=== PATIENT | female | born 1935 | race Caucasian/White ===

== ENCOUNTER → 2023-04-22 08:14 | Outpatient (REF) | payer MEDICARE, OTHER, SELFPAY ==
[2023-04-22 09:26] LABS: Blood Urea Nitrogen 21 mg/dl (7-17); Calcium 9.3 mg/dl (8.4-10.2); Carbon Dioxide 29 mmol/L (22-30); Chloride 97 mmol/L (98-107); Glucose 242 mg/dl (70-99); Sodium 134 mmol/L (135-145); eGFR > 60.00
[2023-04-23 20:44] LABS: Fructosamine 440 umol/L (205-285)
== END ==
LOC: REG 08:14
PROVIDERS: ATTENDING PHYSICIAN Internal Medicine Geriatric Medicine
DX: E11.9 Type 2 diabetes mellitus without complications (principal); I10 Essential (primary) hypertension; E78.5 Hyperlipidemia, unspecified; I25.10 Atherosclerotic heart disease of native coronary artery without angina pectoris; I35.0 Nonrheumatic aortic (valve) stenosis; Z95.2 Presence of prosthetic heart valve; G47.33 Obstructive sleep apnea (adult) (pediatric); G60.9 Hereditary and idiopathic neuropathy, unspecified; J30.2 Other seasonal allergic rhinitis; E55.9 Vitamin D deficiency, unspecified; Z13.31 Encounter for screening for depression; Z12.31 Encounter for screening mammogram for malignant neoplasm of breast
CPT/HCPCS: 36415; 80048; 82985

== ENCOUNTER → 2023-05-26 07:49 | Outpatient (REF) | payer MEDICARE, OTHER, SELFPAY ==
[2023-05-26 08:34] LABS: Urine Albumin Negative (Neg - Trace); Urine Bilirubin Negative (Negative); Urine Character Clear (Clear); Urine Color Yellow; Urine Glucose Trace (Negative); Urine Ketone Negative (Negative); Urine Leukocyte 1+ (Negative); Urine Nitrite Negative (Negative); Urine Occult Blood 3+ (Negative); Urine Specific Gravity 1.015 (<1.030); Urine Urobilinogen Negative (Neg - 1+)
[2023-05-26 08:41] LABS: Urine Bacteria Few (Negative); Urine Red Blood Cell 0-2 /HPF (0-2); Urine White Cell 0-2 /HPF (0-5)
[2023-05-26 08:51] LABS: % Basophils 0.7 % (0-2); % Eosinophils 3.4 % (0-6); % Immature Granulocytes 0.3 % (0-0.5); % Lymphocytes 24.6 % (20.5-51.1); % Monocytes 8.8 % (1.7-9.3); % Neutrophils 62.2 % (42.2-75.2); Absolute Eosinophils 0.2 10^3/uL (0-0.7); Absolute Lymphocytes 1.5 10^3/uL (1.2-3.4); Absolute Monocytes 0.5 10^3/uL (0.1-0.6); Absolute Neutrophils 3.7 10^3/uL (1.4-6.5); Hematocrit 41.7 % (37.0-47.0); Hemoglobin 14.2 g/dL (12.0-16.0); Mean Corp Hgb Conc. 34.1 g/dL (33.0-37.0); Mean Corpuscular Hgb 32.8 pg (27.0-31.0); Mean Corpuscular Volume 96.3 fL (81.0-99.0); Mean Platelet Volume 9.7 fL (7.4-10.4); Nucleated Red Blood Cells % 0 %; Platelet Count 190 10^3/uL (130-400); Red Blood Cell Count 4.33 10^6/uL (4.20-5.40); Red Cell Dist. Width 12.2 % (11.5-14.5); White Blood Cell Count 5.9 10^3/uL (4.8-10.8)
[2023-05-26 09:12] LABS: ALT (SGPT) 24 U/L (0-35); AST (SGOT) 26 U/L (14-36); Albumin 4.1 g/dl (3.5-5.0); Alkaline Phosphatase 85 U/L (38-126); Blood Urea Nitrogen 22 mg/dl (7-17); Calcium 9.9 mg/dl (8.4-10.2); Carbon Dioxide 31 mmol/L (22-30); Chloride 98 mmol/L (98-107); Glucose 219 mg/dl (70-99); HDL Cholesterol 54 mg/dl; LDL Cholesterol, Calculated 63 mg/dl; Potassium 4.2 mmol/L (3.5-5.1); Sodium 136 mmol/L (135-145); Total Bilirubin 0.9 mg/dl (0.2-1.3); Total Cholesterol 149 mg/dl (50-199); Total Protein 6.7 g/dl (6.3-8.2); Triglyceride 161 mg/dl (10-149); Very Low Density Lipoprotein 32 mg/dl (0-30); eGFR > 60.00
[2023-05-26 09:17] LABS: Vitamin D, 25-OH*** 43.8 ng/mL (30-80)
== END ==
LOC: REG 07:49
PROVIDERS: ATTENDING PHYSICIAN Internal Medicine Geriatric Medicine
DX: I10 Essential (primary) hypertension (principal); E11.9 Type 2 diabetes mellitus without complications; E55.9 Vitamin D deficiency, unspecified
CPT/HCPCS: 36415; 80053; 80061; 81003; 81015; 82306; 83036; 85025

== ENCOUNTER → 2023-09-06 09:03 | Outpatient (REF) | payer MEDICARE, OTHER, SELFPAY ==
[2023-09-06 10:36] LABS: % Basophils 0.8 % (0-2); % Eosinophils 3.3 % (0-6); % Immature Granulocytes 0.3 % (0-0.5); % Lymphocytes 19.7 % (20.5-51.1); % Monocytes 8.6 % (1.7-9.3); % Neutrophils 67.3 % (42.2-75.2); Absolute Basophils 0.1 10^3/uL (0-0.2); Absolute Eosinophils 0.2 10^3/uL (0-0.7); Absolute Lymphocytes 1.3 10^3/uL (1.2-3.4); Absolute Monocytes 0.6 10^3/uL (0.1-0.6); Absolute Neutrophils 4.3 10^3/uL (1.4-6.5); Hematocrit 39.5 % (37.0-47.0); Hemoglobin 13.4 g/dL (12.0-16.0); Mean Corp Hgb Conc. 33.9 g/dL (33.0-37.0); Mean Corpuscular Hgb 33.2 pg (27.0-31.0); Mean Corpuscular Volume 97.8 fL (81.0-99.0); Mean Platelet Volume 10.4 fL (7.4-10.4); Nucleated Red Blood Cells % 0 %; Platelet Count 152 10^3/uL (130-400); Red Blood Cell Count 4.04 10^6/uL (4.20-5.40); White Blood Cell Count 6.4 10^3/uL (4.8-10.8)
[2023-09-06 11:07] LABS: ALT (SGPT) 19 U/L (0-35); AST (SGOT) 25 U/L (14-36); Albumin 3.9 g/dl (3.5-5.0); Alkaline Phosphatase 83 U/L (38-126); Blood Urea Nitrogen 18 mg/dl (7-17); Calcium 9.6 mg/dl (8.4-10.2); Carbon Dioxide 30 mmol/L (22-30); Chloride 99 mmol/L (98-107); Glucose 210 mg/dl (70-99); Potassium 4.4 mmol/L (3.5-5.1); Sodium 136 mmol/L (135-145); Total Bilirubin 0.8 mg/dl (0.2-1.3); Total Protein 6.7 g/dl (6.3-8.2); eGFR > 60.00
[2023-09-07 22:36] LABS: Fructosamine 408 umol/L (205-285)
[2023-09-08 00:34] LABS: C-Peptide 3.3 ng/mL (0.5-3.3)
== END ==
LOC: REG 09:03
PROVIDERS: ATTENDING PHYSICIAN Internal Medicine Geriatric Medicine
DX: E11.9 Type 2 diabetes mellitus without complications (principal); I10 Essential (primary) hypertension; E78.5 Hyperlipidemia, unspecified; I25.10 Atherosclerotic heart disease of native coronary artery without angina pectoris; I35.0 Nonrheumatic aortic (valve) stenosis; Z95.2 Presence of prosthetic heart valve; G47.33 Obstructive sleep apnea (adult) (pediatric); G60.9 Hereditary and idiopathic neuropathy, unspecified; J30.2 Other seasonal allergic rhinitis; E55.9 Vitamin D deficiency, unspecified; Z13.31 Encounter for screening for depression
CPT/HCPCS: 36415; 80053; 82985; 84681; 85025

== ENCOUNTER → 2023-10-30 07:50 | Outpatient (REF) | payer MEDICARE, OTHER, SELFPAY ==
[2023-10-30 09:07] LABS: ALT (SGPT) 27 U/L (0-35); AST (SGOT) 28 U/L (14-36); Albumin 4.2 g/dl (3.5-5.0); Alkaline Phosphatase 117 U/L (38-126); Blood Urea Nitrogen 19 mg/dl (7-17); Calcium 9.6 mg/dl (8.4-10.2); Carbon Dioxide 31 mmol/L (22-30); Chloride 98 mmol/L (98-107); Glucose 276 mg/dl (70-99); Sodium 134 mmol/L (135-145); Total Bilirubin 0.8 mg/dl (0.2-1.3); Total Protein 6.8 g/dl (6.3-8.2); eGFR 54.53
[2023-10-30 09:14] LABS: Potassium 4.9 mmol/L (3.5-5.1)
[2023-11-01 09:50] LABS: Fructosamine 476 umol/L (205-285)
== END ==
LOC: REG 07:50
PROVIDERS: ATTENDING PHYSICIAN Internal Medicine Geriatric Medicine
DX: E11.9 Type 2 diabetes mellitus without complications (principal); E78.5 Hyperlipidemia, unspecified; I25.10 Atherosclerotic heart disease of native coronary artery without angina pectoris; I35.0 Nonrheumatic aortic (valve) stenosis; Z95.2 Presence of prosthetic heart valve; G47.33 Obstructive sleep apnea (adult) (pediatric); G60.9 Hereditary and idiopathic neuropathy, unspecified; J30.2 Other seasonal allergic rhinitis; Z13.31 Encounter for screening for depression
CPT/HCPCS: 36415; 80053; 82985

== ENCOUNTER → 2023-12-11 09:37 | Outpatient (REF) | payer MEDICARE, OTHER, SELFPAY ==
[2023-12-11 10:53] LABS: Urine Albumin Trace (Neg - Trace); Urine Bilirubin Negative (Negative); Urine Character Clear (Clear); Urine Color Yellow; Urine Glucose 1+ (Negative); Urine Ketone Negative (Negative); Urine Leukocyte 2+ (Negative); Urine Nitrite Negative (Negative); Urine Occult Blood Negative (Negative); Urine Urobilinogen Negative (Neg - 1+)
[2023-12-11 11:18] LABS: % Basophils 0.9 % (0-2); % Eosinophils 3.8 % (0-6); % Immature Granulocytes 0.3 % (0-0.5); % Lymphocytes 25.1 % (20.5-51.1); % Monocytes 9.7 % (1.7-9.3); % Neutrophils 60.2 % (42.2-75.2); Absolute Basophils 0.1 10^3/uL (0-0.2); Absolute Eosinophils 0.2 10^3/uL (0-0.7); Absolute Lymphocytes 1.5 10^3/uL (1.2-3.4); Absolute Monocytes 0.6 10^3/uL (0.1-0.6); Absolute Neutrophils 3.5 10^3/uL (1.4-6.5); Hematocrit 39.6 % (37.0-47.0); Hemoglobin 13.6 g/dL (12.0-16.0); Mean Corp Hgb Conc. 34.3 g/dL (33.0-37.0); Mean Corpuscular Hgb 32.5 pg (27.0-31.0); Mean Corpuscular Volume 94.5 fL (81.0-99.0); Mean Platelet Volume 9.8 fL (7.4-10.4); Nucleated Red Blood Cells % 0 %; Platelet Count 201 10^3/uL (130-400); Red Blood Cell Count 4.19 10^6/uL (4.20-5.40); Red Cell Dist. Width 11.9 % (11.5-14.5); White Blood Cell Count 5.9 10^3/uL (4.8-10.8)
[2023-12-11 11:24] LABS: Urine Red Blood Cell None Seen /HPF (0-2)
[2023-12-11 11:39] LABS: ALT (SGPT) 25 U/L (0-35); AST (SGOT) 26 U/L (14-36); Albumin 4.1 g/dl (3.5-5.0); Alkaline Phosphatase 110 U/L (38-126); Blood Urea Nitrogen 21 mg/dl (7-17); Calcium 9.7 mg/dl (8.4-10.2); Carbon Dioxide 28 mmol/L (22-30); Chloride 97 mmol/L (98-107); Glucose 259 mg/dl (70-99); HDL Cholesterol 53 mg/dl; LDL Cholesterol, Calculated 79 mg/dl; Potassium 4.6 mmol/L (3.5-5.1); Sodium 138 mmol/L (135-145); Total Bilirubin 0.8 mg/dl (0.2-1.3); Total Cholesterol 163 mg/dl (50-199); Total Protein 6.9 g/dl (6.3-8.2); Triglyceride 158 mg/dl (10-149); Very Low Density Lipoprotein 31 mg/dl (0-30); eGFR 54.53
[2023-12-11 12:59] LABS: Glycohemoglobin (HgbA1c) 10.4 % (4.0-5.6)
[2023-12-12 17:48] LABS: C-Peptide 4.6 ng/mL (0.5-3.3)
== END ==
LOC: REG 09:37
PROVIDERS: ATTENDING PHYSICIAN Internal Medicine Geriatric Medicine
DX: E11.9 Type 2 diabetes mellitus without complications (principal); I10 Essential (primary) hypertension; E78.5 Hyperlipidemia, unspecified; I25.10 Atherosclerotic heart disease of native coronary artery without angina pectoris; I35.0 Nonrheumatic aortic (valve) stenosis; Z95.2 Presence of prosthetic heart valve; G47.33 Obstructive sleep apnea (adult) (pediatric); G60.9 Hereditary and idiopathic neuropathy, unspecified; J30.2 Other seasonal allergic rhinitis; E55.9 Vitamin D deficiency, unspecified; Z13.31 Encounter for screening for depression; D62 Acute posthemorrhagic anemia
CPT/HCPCS: 36415; 80053; 80061; 81003; 81015; 82306; 83036; 84681; 85025

== ENCOUNTER → 2024-01-12 08:33 | Outpatient (REF) | payer MEDICARE, OTHER, SELFPAY ==
[2024-01-12 09:47] LABS: ALT (SGPT) 31 U/L (0-35); AST (SGOT) 29 U/L (14-36); Alkaline Phosphatase 109 U/L (38-126); Blood Urea Nitrogen 26 mg/dl (7-17); Calcium 9.3 mg/dl (8.4-10.2); Carbon Dioxide 28 mmol/L (22-30); Chloride 99 mmol/L (98-107); Glucose 295 mg/dl (70-99); Potassium 4.8 mmol/L (3.5-5.1); Sodium 138 mmol/L (135-145); Total Bilirubin 0.7 mg/dl (0.2-1.3); Total Protein 6.9 g/dl (6.3-8.2); eGFR 54.53
[2024-01-13 23:12] LABS: Fructosamine 501 umol/L (205-285)
== END ==
LOC: REG 08:33
PROVIDERS: ATTENDING PHYSICIAN Internal Medicine Geriatric Medicine
DX: E11.9 Type 2 diabetes mellitus without complications (principal); I10 Essential (primary) hypertension; E78.5 Hyperlipidemia, unspecified; I25.10 Atherosclerotic heart disease of native coronary artery without angina pectoris; I35.0 Nonrheumatic aortic (valve) stenosis; Z95.2 Presence of prosthetic heart valve; G47.33 Obstructive sleep apnea (adult) (pediatric); G60.9 Hereditary and idiopathic neuropathy, unspecified; J30.2 Other seasonal allergic rhinitis; Z13.31 Encounter for screening for depression
CPT/HCPCS: 36415; 80053; 82985

== ENCOUNTER → 2024-02-09 08:38 | Outpatient (REF) | payer MEDICARE, OTHER, SELFPAY ==
[2024-02-09 09:44] LABS: Glucose 298 mg/dl (70-99)
== END ==
LOC: REG 08:38
PROVIDERS: ATTENDING PHYSICIAN Internal Medicine Geriatric Medicine
DX: E11.9 Type 2 diabetes mellitus without complications (principal)
CPT/HCPCS: 36415; 82947

== ENCOUNTER → 2024-03-18 09:06 | Outpatient (REF) | payer MEDICARE, OTHER, SELFPAY ==
[2024-03-18 09:54] LABS: % Basophils 0.9 % (0-2); % Eosinophils 4.1 % (0-6); % Immature Granulocytes 0.3 % (0-0.5); % Lymphocytes 20.4 % (20.5-51.1); % Monocytes 8.4 % (1.7-9.3); % Neutrophils 65.9 % (42.2-75.2); Absolute Basophils 0.1 10^3/uL (0-0.2); Absolute Eosinophils 0.3 10^3/uL (0-0.7); Absolute Lymphocytes 1.3 10^3/uL (1.2-3.4); Absolute Monocytes 0.6 10^3/uL (0.1-0.6); Absolute Neutrophils 4.3 10^3/uL (1.4-6.5); Hematocrit 39.7 % (37.0-47.0); Hemoglobin 13.7 g/dL (12.0-16.0); Mean Corp Hgb Conc. 34.5 g/dL (33.0-37.0); Mean Corpuscular Hgb 33.2 pg (27.0-31.0); Mean Corpuscular Volume 96.1 fL (81.0-99.0); Mean Platelet Volume 9.5 fL (7.4-10.4); Nucleated Red Blood Cells % 0 %; Platelet Count 206 10^3/uL (130-400); Red Blood Cell Count 4.13 10^6/uL (4.20-5.40); Red Cell Dist. Width 12.3 % (11.5-14.5); White Blood Cell Count 6.5 10^3/uL (4.8-10.8)
[2024-03-18 10:36] LABS: ALT (SGPT) 26 U/L (0-35); AST (SGOT) 28 U/L (14-36); Alkaline Phosphatase 89 U/L (38-126); Blood Urea Nitrogen 21 mg/dl (7-17); Calcium 9.5 mg/dl (8.4-10.2); Carbon Dioxide 30 mmol/L (22-30); Chloride 99 mmol/L (98-107); Glucose 184 mg/dl (70-99); Sodium 136 mmol/L (135-145); Total Bilirubin 0.7 mg/dl (0.2-1.3); Total Protein 6.8 g/dl (6.3-8.2); eGFR > 60.00
[2024-03-18 10:55] LABS: Potassium 4.3 mmol/L (3.5-5.1)
[2024-03-19 09:00] LABS: Fructosamine 351 umol/L (205-285)
== END ==
LOC: REG 09:06
PROVIDERS: ATTENDING PHYSICIAN Internal Medicine Geriatric Medicine
DX: E11.9 Type 2 diabetes mellitus without complications (principal); I10 Essential (primary) hypertension; E78.5 Hyperlipidemia, unspecified; I25.10 Atherosclerotic heart disease of native coronary artery without angina pectoris; I35.0 Nonrheumatic aortic (valve) stenosis; Z95.2 Presence of prosthetic heart valve; G47.33 Obstructive sleep apnea (adult) (pediatric); G60.9 Hereditary and idiopathic neuropathy, unspecified; J30.2 Other seasonal allergic rhinitis; E55.9 Vitamin D deficiency, unspecified; Z13.31 Encounter for screening for depression
CPT/HCPCS: 36415; 80053; 82985; 85025

== ENCOUNTER → 2024-06-12 11:36 | Outpatient (REF) | payer MEDICARE, OTHER, SELFPAY ==
[2024-06-12 12:22] LABS: % Basophils 1.1 % (0-2); % Eosinophils 3.8 % (0-6); % Immature Granulocytes 0.3 % (0-0.5); % Lymphocytes 20.5 % (20.5-51.1); % Monocytes 7.6 % (1.7-9.3); % Neutrophils 66.7 % (42.2-75.2); Absolute Basophils 0.1 10^3/uL (0-0.2); Absolute Eosinophils 0.3 10^3/uL (0-0.7); Absolute Lymphocytes 1.4 10^3/uL (1.2-3.4); Absolute Monocytes 0.5 10^3/uL (0.1-0.6); Absolute Neutrophils 4.4 10^3/uL (1.4-6.5); Hematocrit 41.5 % (37.0-47.0); Hemoglobin 13.7 g/dL (12.0-16.0); Mean Corpuscular Hgb 32.9 pg (27.0-31.0); Mean Corpuscular Volume 99.8 fL (81.0-99.0); Mean Platelet Volume 9.4 fL (7.4-10.4); Nucleated Red Blood Cells % 0 %; Platelet Count 186 10^3/uL (130-400); Red Blood Cell Count 4.16 10^6/uL (4.20-5.40); Red Cell Dist. Width 12.1 % (11.5-14.5); White Blood Cell Count 6.6 10^3/uL (4.8-10.8)
[2024-06-12 13:44] LABS: ALT (SGPT) 22 U/L (0-35); AST (SGOT) 23 U/L (14-36); Albumin 4.3 g/dl (3.5-5.0); Alkaline Phosphatase 88 U/L (38-126); Blood Urea Nitrogen 19 mg/dl (7-17); Calcium 9.6 mg/dl (8.4-10.2); Carbon Dioxide 28 mmol/L (22-30); Chloride 101 mmol/L (98-107); Glucose 170 mg/dl (70-99); HDL Cholesterol 66 mg/dl; LDL Cholesterol, Calculated 69 mg/dl; Potassium 4.6 mmol/L (3.5-5.1); Sodium 138 mmol/L (135-145); Total Bilirubin 0.7 mg/dl (0.2-1.3); Total Cholesterol 153 mg/dl (50-199); Total Protein 6.8 g/dl (6.3-8.2); Triglyceride 92 mg/dl (10-149); Very Low Density Lipoprotein 18 mg/dl (0-30); eGFR > 60.00
== END ==
LOC: REG 11:36
PROVIDERS: ATTENDING PHYSICIAN Internal Medicine Geriatric Medicine
DX: E11.9 Type 2 diabetes mellitus without complications (principal); I10 Essential (primary) hypertension; E78.5 Hyperlipidemia, unspecified; I25.10 Atherosclerotic heart disease of native coronary artery without angina pectoris; I35.0 Nonrheumatic aortic (valve) stenosis; Z95.2 Presence of prosthetic heart valve; G47.33 Obstructive sleep apnea (adult) (pediatric); G60.9 Hereditary and idiopathic neuropathy, unspecified; J30.2 Other seasonal allergic rhinitis; E55.9 Vitamin D deficiency, unspecified; Z13.31 Encounter for screening for depression
CPT/HCPCS: 36415; 80053; 80061; 83036; 85025

== ENCOUNTER → 2024-08-12 12:56 | Outpatient (REF) | payer MEDICARE, OTHER, SELFPAY | LOC: RCS 12:56 | PROVIDERS: ATTENDING PHYSICIAN Student in an Organized Health Care Education/Training Program; FAMILY PHYSICIAN Internal Medicine Geriatric Medicine | DX: I35.0 Nonrheumatic aortic (valve) stenosis (principal) | CPT/HCPCS: 93306 ==

== ENCOUNTER → 2024-09-13 08:03 | Outpatient (REF) | payer MEDICARE, OTHER, SELFPAY ==
[2024-09-13 09:58] LABS: Blood Urea Nitrogen 22 mg/dl (7-17); Calcium 9.3 mg/dl (8.4-10.2); Carbon Dioxide 30 mmol/L (22-30); Chloride 104 mmol/L (98-107); Glucose 176 mg/dl (70-99); Potassium 4.7 mmol/L (3.5-5.1); Sodium 139 mmol/L (135-145); eGFR > 60.00
[2024-09-13 10:23] LABS: Glycohemoglobin (HgbA1c) 7.7 % (4.0-5.6)
== END ==
LOC: REG 08:03
PROVIDERS: ATTENDING PHYSICIAN Internal Medicine Geriatric Medicine
DX: E11.9 Type 2 diabetes mellitus without complications (principal); I10 Essential (primary) hypertension; E78.5 Hyperlipidemia, unspecified; I25.10 Atherosclerotic heart disease of native coronary artery without angina pectoris; I35.0 Nonrheumatic aortic (valve) stenosis; Z95.2 Presence of prosthetic heart valve; G47.33 Obstructive sleep apnea (adult) (pediatric); G60.9 Hereditary and idiopathic neuropathy, unspecified; J30.2 Other seasonal allergic rhinitis; E55.9 Vitamin D deficiency, unspecified; Z13.31 Encounter for screening for depression
CPT/HCPCS: 36415; 80048; 83036

== ENCOUNTER 2024-09-13 13:00 | Inpatient (IN) | payer MEDICARE, OTHER, SELFPAY ==
[2024-09-13] VITALS (13 sets, daily range): BP systolic 115–201; BP diastolic 51–83; BMI 25.8
--- NOTE | 2024-09-13 09:30 | ED.GENMED ---
History of Present Illness
General
Chief Complaint: Gait Dysfunction
Source: patient
Exam Limitations: none
Time Seen by Provider: 09/13/24 09:08
History of Present Illness
History of Present Illness:
See MDM
Past History
Past History
ED Past Medical History: Asthma, CAD, GERD, HTN, Hypercholesterolemia, Valvular disease and Other (Osteoarthritis, skin cancer)
ED Past Surgical History: Other (knee replacement )
Social History
Tobacco: Former smoker
Personal:
Living: with family
Phy Exam
Physical Exam
Physical Exam:
See MDM
Course
Orders/Labs/Results
Orders:
Orders
09/13/24 09:29
CT Head W/o Iv Contrast Urgent
Comment:
Reason For Exam: expresive aphasia
09/13/24 09:39
Complete Blood Count/With Diff Urgent
09/13/24 11:55
Consult Neurology [NEUROLOGY CONSULT] Routine
Consulting Provider: Michael Moreno
Was physician already notified: Yes
Abnormal Lab Results
09/13/24
09:39
RBC 4.05 L 10^6/uL
(4.20-5.40)
MCH 32.6 H pg
(27.0-31.0)
Absolute Monos (auto) 0.7 H 10^3/uL
(0.1-0.6)
Lymphocytes % 18.6 L %
(20.5-51.1)
09/13/24 09:39
Vital Signs
Initial and Last Documented VS:
Initial Vital Signs
Temp Pulse Resp BP Pulse Ox
98.9 F 60 16 153/70 99
09/13/24 08:26 09/13/24 08:26 09/13/24 08:26 09/13/24 08:26 09/13/24 08:26
Last Documented Vital Signs
Temp Pulse Resp BP Pulse Ox
98.9 F 67 14 151/55 100
09/13/24 08:26 09/13/24 11:15 09/13/24 11:15 09/13/24 11:00 09/13/24 11:15
MDM/Problems Addressed
Differential Diagnosis Includes:
Note:
CHIEF COMPLAINT(S)
Imbalance and involuntary movements.
HISTORY OF PRESENT ILLNESS
The patient is an 89-year-old female who presents with complaints of imbalance and involuntary movements. Her symptoms began a few days ago following recent bilateral cataract surgery, with the right eye operated on three weeks ago and the left eye
last week. Post-surgery, the patient noticed a significant decline in balance, attributing it initially to eye recovery, as she is still experiencing vision impairment due to post-procedural recovery and dilation affecting effective vision.
Per the patient, last night she had increasing difficulty with balance and complained of episodes described as 'spells' involving a loss of control over movement featuring twitching and tremors affecting her arms and legs. These episodes were not
accompanied by loss of consciousness.
The patient's family reports a family history of neurological issues with the patients father having been treated for an acoustic neuroma. There is also a notable history of prior cardiac issues, including open-heart surgery in June 2015 for valve
issues and placement of three stents for cardiac vessel abnormalities. The patient also has a history of diabetes, and recent irregularities in medication due to scheduling and procedural constraints such as delays in Ozempic administration.
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 There was a mention of concern about erythromycin interacting with diabetes medications affecting her blood glucose levels.
According to the family, there was a short period of dizziness post-eye surgery, likely related to the procedure and not general anesthesia.
ADDITIONAL HISTORY OBTAINED FROM SOURCES OTHER THAN THE PATIENT
The patient�s daughter noticed the imbalance when the patient was walking shortly after fasting for a lab test and expressed concern about recent episodes of tremor exacerbation and incoherent speech. Both attributes are reportedly new in severity
post the eye surgeries.
SOCIAL DETERMINANTS AFFECTING HEALTH
The patient may experience stress related to recent caregiving responsibilities before her fathers passing last month. The daughter expressed concern about the patients willingness to prioritize her health over familial obligations.
PHYSICAL EXAM
General: Well appearing and non-toxic
HEENT: protecting airway
Neck: appears supple
CV: No evidence of cyanosis. Regular rate and rhythm
Resp: No accessory muscle use
Abd: Non-distended
Extremities: No deformities
Neuro: alert. Normal finger-nose. No focal neurodeficits. Very minor expressive aphasia. Intermittent facial twitching
Psych: Normal affect
Skin: Intact
PLAN
The plan includes a comprehensive evaluation, including a head CT and potential MRI with admission to rule out cerebrovascular events, intracranial masses, or seizure activity. Laboratory tests will include glucose levels given concerns of
dysregulation due to antibiotic interaction. Observation for potential admission was advised due to the risk of falls given her expressed imbalance and the family concern over the potential for further acute episodes.
DIFFERENTIAL DIAGNOSIS
The Differential Diagnosis includes, in no particular order and is not limited to:
1. Transient ischemic attack (TIA)
2. Stroke
3. Seizure disorder
4. Medication-induced tremor
5. Vestibular dysfunction secondary to recent eye surgery
6. Worsening essential tremor
7. Parkinsons disease
8. Intracranial lesion or mass
9. Dysmetabolic syndrome affecting balance
10. Orthostatic hypotension-related imbalance
DISPOSITION
The patient was admitted for a neurology consult for further evaluation.
INDEPENDENT REVIEW OF LABS AND INTERPRETATION OF TESTS
My independent review of the CT scan is negative for acute findings. Blood work did not reveal significant abnormalities.
MEDICAL DECISION MAKING
1. Number & Complexity of Problems: Chronic conditions affecting care include a history of cardiac issues and diabetes. The primary differential diagnoses considered are Transient Ischemic Attack (TIA) and non-epileptic seizures.
2. Data Reviewed:
- Category 1: CT scan and blood work were ordered and reviewed.
- Category 3: The case was discussed with the neurology team, and a consult was arranged for further evaluation.
3. Risk: Consideration of admission was made due to complexity and risk associated with the presenting symptoms and history. The inpatient evaluation is warranted based on the need for comprehensive neurological assessment and possible EEG or MRI.
PATHOLOGIES TO CONSIDER
- Transient Ischemic Attack (TIA)
- Seizure disorder
- Stroke
*Pulse Oximetry
SaO2: 100
Patient hypoxic: no
*Critical Care Note
Total Time (30-74mins, 75-104mins- exclusive of procedures): Not Applicable
ED Attending Note
-
Portions of this chart may have been created with voice recognition software.� Occasional wrong word or��sound alike� substitutions may have occurred due to the inherent limitations of voice recognition software.
Discharge Plan
Departure
Patient Disposition: Admit
Date of Disposition: 09/13/24
Time of Disposition: 11:58
Admit to: Telemetry
Presentation/result/management discussed w/ accepting MD/DO: Hospitalist
Discharge Problem:
Expressive aphasia
Prescriptions:
No Action
montelukast [Singulair] 10 MG tablet
10 mg PO QPM
aspirin 81 MG tablet,delayed release (DR/EC)
81 mg PO DAILY
fexofenadine [Melissa] 180 MG tablet
180 mg PO DAILY
Patient Comments:
pt does not take this
gabapentin [Neurontin] 800 MG tablet
1,600 mg PO BID
omega 2-oie-nmv-fish oil 1 EACH capsule,delayed release(DR/EC)
1,000 mg PO DAILY
metoprolol succinate 25 MG tablet extended release 24 hr
25 mg PO DAILY
coenzyme Q10 [Co Q-10] 100 MG capsule
100 mg PO BID
docusate sodium 100 MG capsule
100 mg PO HS
albuterol sulfate [Proventil HFA] 90 MCG/PUFF HFA aerosol inhaler
2 inh inhalation PRN PRN (Reason: sob)
Patient Comments:
took about a year ago
lutein 20 MG capsule
20 mg PO BID
cetirizine [Zyrtec] 10 MG tablet,disintegrating
10 mg PO DAILY
oxycodone-acetaminophen 5 MG/325 MG tablet
1 tab PO Q6HPRN PRN (Reason: DISTRESSING PAIN) Qty: 40 0RF
insulin glargine [Lantus Solostar U-100 Insulin] 300 UNITS/3 ML insulin pen
10 units SC HS Qty: 1 3RF
Rx Instructions:
see family doctor or consumer services consultant for continued refills
repaglinide 0.5 MG tablet
0.5 mg PO MEALS Qty: 90 3RF
Rx Instructions:
see family doctor or consumer services consultant for continued refills
simvastatin 40 MG tablet
40 mg PO QPM Qty: 0 0RF
lidocaine [Lidoderm] 5 % adhesive patch,medicated
1 patch topical DAILY Qty: 15 0RF
diclofenac sodium 3 % gel
1 applic topical BID Qty: 100 0RF
Referrals:
Timbo Benjamin MD [Family Provider, Internal Medicine]
Interventions
Interventions:
*Risk Screen - Suicide Last Done: 09/13/24 08:48
*General Assessment Last Done: 09/13/24 08:46
*Neglect/Abuse Screening Last Done: 09/13/24 08:46
*ED- Fall Risk Assessment Last Done: 09/13/24 08:46
*ED COVID-19 Vaccine History Last Done: 09/13/24 08:46
ED- Cardiac Assessment Last Done: 09/13/24 08:48
ED-Musculoskeletal Assessment Last Done: 09/13/24 08:48
ED- Neurological Assessment Last Done: 09/13/24 08:48
ED- Pulmonary Assessment Last Done: 09/13/24 08:48
ED Swallowing Screen Last Done: 09/13/24 11:18
Discharge Date and Time
Print Language: THAI
[2024-09-13 10:04] LABS: % Basophils 0.9 % (0-2); % Eosinophils 3.6 % (0-6); % Immature Granulocytes 0.3 % (0-0.5); % Lymphocytes 18.6 % (20.5-51.1); % Monocytes 9.2 % (1.7-9.3); % Neutrophils 67.4 % (42.2-75.2); Absolute Basophils 0.1 10^3/uL (0-0.2); Absolute Eosinophils 0.3 10^3/uL (0-0.7); Absolute Lymphocytes 1.5 10^3/uL (1.2-3.4); Absolute Monocytes 0.7 10^3/uL (0.1-0.6); Absolute Neutrophils 5.4 10^3/uL (1.4-6.5); Hematocrit 38.1 % (37.0-47.0); Hemoglobin 13.2 g/dL (12.0-16.0); Mean Corp Hgb Conc. 34.6 g/dL (33.0-37.0); Mean Corpuscular Hgb 32.6 pg (27.0-31.0); Mean Corpuscular Volume 94.1 fL (81.0-99.0); Mean Platelet Volume 9.6 fL (7.4-10.4); Nucleated Red Blood Cells % 0 %; Platelet Count 156 10^3/uL (130-400); Red Blood Cell Count 4.05 10^6/uL (4.20-5.40); Red Cell Dist. Width 11.9 % (11.5-14.5)
--- NOTE | 2024-09-13 12:03 | HPS.HSE ---
Addendum entered and electronically signed by Keegan Pitt MD 09/13/24 13:23:
ADDENDUM to PMHX
Bioprosthetic aortic valve replacement.
Original Note:
Family Physician
-
Family Physician: Timbo Benjamin
Chief Complaint
-
abn speech
History of Present Illness
HPI
89F , former smoker, recent bilateral cataract surgery ( right eye operated on three weeks ago and the left eye last week) Asthma, CAD, CABG 2016, stents, AoVR, DM, HTN, Hypercholesterolemia, Valvular disease pw imbalance and involuntary
movements.
- Post-surgery, the patient noticed a significant decline in balance, attributing it initially to eye recovery
- however she is still experiencing vision impairment due to post-procedural recovery and dilation affecting effective vision.
- last night she had increasing difficulty with balance
- one episodes 'spells' involving a loss of control over movement featuring twitching and tremors affecting her arms and legs.
- denied loss of consciousness.
- short period of dizziness post-eye surgery, likely related to the procedure and not general anesthesia.
FHX- father has acoustic neuroma . No HX neurofibromaosis
Medical History
Past Medical History
Past Medical History: Reports CAD, GERD, HTN, Hypercholesterolemia, IDDM and Valvular Disease
Past Surgical History: Reports Cardiac (CABG and AoVR 2016, sttes for CAD )
Social History
Alcohol: Occasional
Drug: Former User
Family History
Family History: Not pertinent
Allergies / Home Medications
Allergies reflects when Allergies were last updated in RECESS..
Home Medications with original date entered in RECESS.
Allergy/Medication List:
Allergies
Allergy/AdvReac Type Severity Reaction Status Date / Time
hydromorphone HCl (From Allergy Dizziness, Verified 09/13/24 08:29
Dilaudid) vomiting
mold,dust,pollen, petroleum Allergy Swelling Uncoded 09/13/24 08:29
product
Home Medications
montelukast 10 mg tablet (Singulair) 10 mg PO QPM 01/05/08
aspirin 81 mg tablet,delayed release 81 mg PO DAILY 09/20/09
fexofenadine 180 mg tablet (Melissa) 180 mg PO DAILY 02/12/13
gabapentin 800 mg tablet (Neurontin) 1,600 mg PO BID 02/12/13
omega 3-sbz-xrr-fish oil 980 mg-1,400mg capsule,delayed release 1,000 mg PO DAILY 02/12/13
coenzyme Q10 100 mg capsule (Co Q-10) 100 mg PO BID 02/15/13
metoprolol succinate 25 mg tablet,extended release 24 hr 25 mg PO DAILY 02/15/13
albuterol sulfate 90 mcg/actuation aerosol inhaler (Proventil HFA) 2 inh inhalation PRN PRN sob 03/15/13
docusate sodium 100 mg capsule 100 mg PO HS 03/15/13
lutein 20 mg capsule 20 mg PO BID 03/15/13
cetirizine 10 mg disintegrating tablet (Zyrtec) 10 mg PO DAILY 07/04/15
insulin glargine 100 unit/mL (3 mL) subcutaneous pen (Lantus Solostar U-100 Insulin) 10 units (0.1 mL) SC HS ##1 07/10/15
oxycodone-acetaminophen 5 mg-325 mg tablet 1 tab PO Q6HPRN PRN DISTRESSING PAIN ##40 07/10/15
repaglinide 0.5 mg tablet 0.5 mg PO MEALS #90 tabs 07/10/15
simvastatin 40 mg tablet 40 mg PO QPM #0 tabs 07/10/15
diclofenac sodium 3 % topical gel 1 applic topical BID #100 grams 09/11/22
lidocaine 5 % topical patch (Lidoderm) 1 patch topical DAILY #15 ea 09/11/22
Review of Systems
-
Constitutional: Reports No Symptoms
EENT: Reports No Symptoms
Respiratory: Reports No Symptoms
Cardiac: Reports No Symptoms
Abdomen/GI: Reports No Symptoms
: Reports No Symptoms
Musculoskeletal: Reports No Symptoms
Skin: Reports No Symptoms
Neurological: Reports See HPI
Endocrine: Reports No Symptoms
Hematologic/Lymphatic: Reports No Symptoms
Psych: Reports No Symptoms
Physical Exam
Vital Signs
Vital Signs
Temp Pulse Resp BP Pulse Ox
98.9 F 66 19 151/55 100
09/13/24 08:26 09/13/24 12:00 09/13/24 12:00 09/13/24 11:00 09/13/24 12:00
Physical Exam
General: No Apparent Distress, Comfortable and Other (anxious )
HEENT: NormoCephalic, Anicteric and Moist mucous membranes
Respiratory: Clear; No Wheezes
Cardiac: S1/S2 and Regular Rhythm; No Bradycardia or Tachycardia
Breast: Deferred by me
GI: Soft, Non Tender, Non Distended and Normal Bowel Sounds
Rectal: Deferred by Provider
Genito-urinary: Deferred by me
Musculoskeletal: No Edema
Skin: Warm
Neuro: Awake, Alert, AO x 3, Tremors and Other (symmetric finger to nose touch , symmetric cerbellar function , abnormal speech in iniutating but nl language function)
Hematologic/Lymphatic: Lymphadenopathy
Psych: Calm
Laboratory Results
-
09/13/24 09:39
Data Reviewed
-
CT Scan: Report Reviewed by me
Medical Tests (Nuc Med, Echo, EKG etc): Report Reviewed by me
Lab Data: Labs Reviewed by me
Impression/Plan
-
Vital Signs
Temp Pulse Resp BP Pulse Ox
98.9 F 66 19 151/55 100
09/13/24 08:26 09/13/24 12:00 09/13/24 12:00 09/13/24 11:00 09/13/24 12:00
Laboratory Tests
06/12/24 09/13/24 09/13/24
11:48 08:15 09:39
WBC 8.0
Hgb 13.2
Plt Count 156
BUN 22 H
Creatinine 0.9
eGFR > 60.00
Glucose 176 H
Hemoglobin A1c 7.0 H 7.7 H
09/13/24 CT Head W/o Iv Contrast
No acute intracranial hemorrhage.
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
No mass effect.
Moderate central greater than cortical global atrophy
09/11/24 Lx spine XR
No acute osseous abnormalities.
Lumbar degenerative disc disease with moderate disc space narrowing from L1-2 through L5-S1
Atherosclerosis
07/23/24 TTE
Normal biventricular size and systolic function without regional wall motion abnormality.
Asymmetric septal hypertrophy without evidence of LVOT gradient.
Stage II diastolic dysfunction suggestive of abnormal relaxation and increased filling pressures.
Bioprosthetic aortic valve replacement. Peak/mean gradients across the aortic valve are 40 mmHg/26 mmHg.
Mild pulmonary hypertension.
Compared to the prior study on 04/26/21, the mean gradient across the AVR was 21mmHg on the prior study.
NO PRIOR hospitalist admission:
ASSESSMENT & PLAN
Pending Rx reconciliation
Tremors ? Medication-induced tremor or Metabolic encephalatrophy or worsening essential tremor or Parkinson disease
Balance dysfunction - Vestibular dysfunction secondary to recent b/l cataract surgery vs acoustic neuroma
Other DDX - Transient ischemic attack (TIA) Stroke, Orthostatic hypotension
FHX / father has acoustic neuroma
- NEG HCT for acute pathology or mass effect
- Hold albuterol (B2 agonist ) INH for now in case precipitating tremors but denied use recently
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
- Brain MRI with ontrast
- PT/OT
- Neuro consulted by ER attd
CAD with stents
CABG 2015
Stage II diastolic dysfunction suggestive of abnormal relaxation and increased filling pressures.
- on ASA, Stain and BB
Mild pulmonary hypertension.
- ASA
- Metoprolol XL
IDDM
A1C 7.7
- Lantus HS
- Repaglinide
- add ISS low
HLD
- Atorvastatin
DVT Px: SQH
Code: Full
IP TLM
--- NOTE | 2024-09-13 12:32 | CON.NEURO ---
Addendum entered and electronically signed by Michael Moreno MD 09/13/24 14:52:
Studies reviewed.
I have personally examined the patient. I reviewed and agree with the RAGMAN's Note.
My addenda:
Awake, alert, interactive. No acute distress. Left eye bruising
Speech with stuttering.
Follows 2-step requests w/o difficulty. No tremor.
Extra-ocular movements grossly intact.
Facial movements full and symmetric. Hearing intact to normal conversational volume.
Normal UE movements bilaterally except for single myotonic movement proximally in the left upper extremity after extension
Neck: full ROM.
Chest: no dyspnea
Heart: no JVD
Ext: (-) Clubbing, (-) Cyanosis, (-) Edema
IMPRESSIONS/RECOMMENDATIONS:
Abrupt onset of increased involuntary movements which were present for chronic timeframe. Most likely patient is experiencing some mild tonic movements due to gabapentin
Would attempt to replace gabapentin with alternative medication including duloxetine as outpatient
Rehabilitation evaluations
We will follow MRI of brain results
Not clear patient would benefit from EEG at this time as there is no evidence of focal onset seizures
D/W patient / family
All questions answered.
Will continue to follow pending results. Patient should follow with her usual outpatient neurologist.
Original Note:
Documented by User: Vashti Santos NP 09/13/24 14:26
Neuro Assessment/Plan
Assessment
The patient is a right-handed 89-year-old female with a past medical history of asthma, CAD, AMY, GERD, HTN, HLD, s/p CABG 2016, osteoarthritis, skin cancer who presents with complaints of imbalance and involuntary movements.
Head CT (09/13/2024): No acute intracranial hemorrhage. 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 No mass effect. Moderate central greater than cortical global atrophy.
Lumbar spine XR (09/11/2024):
No acute osseous abnormalities.
Lumbar degenerative disc disease with moderate disc space narrowing from L1-2 through L5-S1
Atherosclerosis
TTE (07/23/2024):
Normal biventricular size and systolic function without regional wall motion abnormality.
Asymmetric septal hypertrophy without evidence of LVOT gradient.
Stage II diastolic dysfunction suggestive of abnormal relaxation and increased filling pressures.
Bioprosthetic aortic valve replacement. Peak/mean gradients across the aortic valve are 40 mmHg/26 mmHg.
Mild pulmonary hypertension.
Compared to the prior study on 04/26/21, the mean gradient across the AVR was 21mmHg on the prior study.
Labs: Cholesterol and LDL from 06/12/2024 153, 69
Hgb A1C 7.7
Brain MRI ordered
Plan
Impressions:
I. Benign essential tremor with worsening symptoms in the setting of stress and being post operative vs medication induced tremor as a result of high dose of gabapentin vs TIA/CVA vs seizure although less likely given symptom time frame
II. Gait dysfunction in the setting of recent b/l cataract surgery vs family history in father of acoustic neuroma vs exacerbation of her idiopathic peripheral polyneuropathy vs exacerbation of her lumbar radiculopathy
Plan:
-obtain brain MRI to look for structural causes
-obtain lab work to look for metabolic and vitamin abnormalities
-no need for EEG at this time, given prolonged symptoms
-continue aspirin and statin therapy with goal LDL <70, last LDL 69
-Current hgb A1C 7.7, goal <7.0
-neurochecks and NIHSS per unit guidelines
-DVT prophylaxis
-PT/OT/ST evaluations
-stroke education material to be given
-All questions encouraged and answered, plan of care discussed with Dr. Moreno, hospitalist, patient and patient's daughter
Consultation
Order
Date of Consultation: 09/13/24
Requesting Provider: hospitalist
Reason for Consult: tremor and gait dysfunction
Subjective/Objective
Subjective Data
Date of Service: September 13, 2024
The patient is a right-handed 89-year-old female with a past medical history of asthma, CAD, AMY, GERD, HTN, HLD, s/p CABG 2016, osteoarthritis, skin cancer who presents with complaints of imbalance and involuntary movements. Her symptoms began a
few days ago following recent bilateral cataract surgery, with the right eye operated on three weeks ago and the left eye last week. Post-surgery, the patient noticed a significant decline in balance, attributing it initially to eye recovery, as she
is still experiencing vision impairment due to post-procedural recovery and dilation affecting effective vision.
Per the patient, last night she had increasing difficulty with balance and complained of episodes described as 'spells' involving a loss of control over movement featuring twitching and tremors affecting her arms more than her legs. Also having
issues with her speech during these episodes. These episodes were not accompanied by loss of consciousness. Of note, she states she has a history of benign tremor affecting her RUE and face for over 10 years but does not take medication for this.
She has a remote history of idiopathic peripheral polyneuropathy for which she takes Gabapentin 800 mg at nighttime and 800 mg daily prn. She has a history of b/l carpal tunnel release surgery. She used to follow with neurologist Dr. Errol Schmidt from
[facility].
The patient's family reports a family history of neurological issues with the patient's father having been treated for an acoustic neuroma. There is also a notable history of prior cardiac issues, including open-heart surgery in June 2015 for valve
issues and placement of three stents for cardiac vessel abnormalities. The patient also has a history of diabetes, and recent irregularities in medication due to scheduling and procedural constraints such as delays in Ozempic administration.
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 There was a mention of concern about erythromycin interacting with diabetes medications affecting her blood glucose levels.
According to the family, there was a short period of dizziness post-eye surgery, likely related to the procedure and not general anesthesia. She has been grieving her , he this past July and she was for 68 years.
In the ED, her head CT was negative for acute intracranial hemorrhage. Her vitals are notable for hypertension with her highest recorded 201/83. She is currently afebrile satting 98% on room air. Labs unrevealing.
Objective Data
Vital Signs
Temp Pulse Resp BP Pulse Ox
98.9 F 66 19 151/55 100
09/13/24 08:26 09/13/24 12:00 09/13/24 12:00 09/13/24 11:00 09/13/24 12:00
Lab Results
09/13/24 09:39
Patient Allergies
hydromorphone HCl (From Dilaudid) Allergy (Verified 09/13/24 08:29)
Dizziness, vomiting
mold,dust,pollen, petroleum product Allergy (Uncoded 09/13/24 08:29)
Swelling
CVA Assessment
NIH Stroke Score
Level of Consciousness: 0 - Alert
LOC Questions: 0-Answers both correctly
LOC Commands: 0-Performs both correctly
Best Horizontal Gaze: 0-Normal
Visual Priest: 0=Normal, no visual loss
Facial Palsy: 0=Normal, symmetrical
Motor - Right Arm: 0=No drift 10 seconds
Motor - Left Arm: 0=No drift 10 seconds
Motor - Right Le-No drift 5 seconds
Motor - Left Le-No drift 5 seconds
Limb Ataxia: 0-Absent
Sensation: 0-Normal
Best Language: 0-No aphasia
Dysarthria: 0-Normal
Extinction and Inattention: 0-No abnormality
NIH Total Score:: 0
Tenecteplase Contraindications
Reasons for NON-Tx with Thrombolytics ABSOLUTE Exclusions: Time-out of window
IAT Contraindications: NIHSS < 6
Modified Kinta Score (MRS)
-
Modified Kinta Scale (mRS): No significant disability. Able to carry out usual activities.
Score: 1
Review of Systems
-
History Source: Patient and Family
Constitutional: No Symptoms
EENT: Blurry Vision
Respiratory: No Symptoms
Cardiac: No Symptoms
Abdomen/GI: No Symptoms
Genitourinary: No Symptoms
Musculoskeletal: No Symptoms
Skin: No Symptoms
Neuro: Tremors and Other (gait dysfunction)
Physical Exam
-
General: Comfortable and Appears Stated Age
HEENT: Other (ecchymosis to left eye)
Neck: Full Range of Motion
Respiratory: No Dyspnea
Cardiac: No JVD
GI: Non-distended
Skin: Unremarkable
Extremities: No Clubbing, No Cyanosis and No Edema
Psych: Unremarkable
Extended Neurological Exam
Mood & Affect: Mood Unremarkable
Attention Span & Concentration: Awake, Alert and Interactive
Memory: Unremarkable
Tremor: Other (intermittent perioral tremor)
Speech: Pressured
Cranial Nerve II: Left Eye: Visual Priest Reduced
Cranial Nerve II: Right Eye: Visual Priest Grossly Intact
Cranial Nerve VII: Facial Symmetry: Normal Facial Symmetry
Cranial Nerve VIII: Hearing: Unremarkable Hearing to Normal Conversational Volume
Muscle Strength, Overall: Full Throughout
Muscle Bulk & Tone: Bulk Unremarkable and Tone Unremarkable
Pronator Drift: No Drift in Upper Extremities and No Drift in Lower Extremities
Deep Tendon Reflexes: Unremarkable Throughout
Coordination: Worerj-bprt-liqora Testing Unremarkable and Zccf-Lesz-Yqcq movements intact bilaterally
Data Reviewed
-
CT Head: Report Reviewed and Image Reviewed
MRI Head: Ordered
EEG: Ordered
Labs: Report Reviewed
Reviewed with: Physician, Patient and Family
Old Records: Summarized
Medications
-
Home Medications
�Medication �Instructions �Recorded
montelukast 10 mg tablet 10 mg PO QPM 01/05/08
(Singulair)
aspirin 81 mg tablet,delayed 81 mg PO DAILY 09/20/09
release
fexofenadine 180 mg tablet 180 mg PO DAILY 11/22/13
(Melisas)
gabapentin 800 mg tablet 1,600 mg PO BID 02/12/13
(Neurontin)
omega 3-iwi-zmk-fish oil 980 1,000 mg PO DAILY 02/12/13
mg-1,400mg capsule,delayed release
coenzyme Q10 100 mg capsule (Co 100 mg PO BID 02/15/13
Q-10)
metoprolol succinate 25 mg 25 mg PO DAILY 02/15/13
tablet,extended release 24 hr
albuterol sulfate 90 mcg/actuation 2 inh inhalation PRN PRN sob 03/15/13
aerosol inhaler (Proventil HFA)
docusate sodium 100 mg capsule 100 mg PO HS 03/15/13
lutein 20 mg capsule 20 mg PO BID 03/15/13
cetirizine 10 mg disintegrating 10 mg PO DAILY 07/04/15
tablet (Zyrtec)
insulin glargine 100 unit/mL (3 10 units (0.1 mL) SC HS ##1 07/10/15
mL) subcutaneous pen (Lantus
Solostar U-100 Insulin)
oxycodone-acetaminophen 5 mg-325 1 tab PO Q6HPRN PRN DISTRESSING 07/10/15
mg tablet PAIN ##40
repaglinide 0.5 mg tablet 0.5 mg PO MEALS #90 tabs 07/10/15
simvastatin 40 mg tablet 40 mg PO QPM #0 tabs 07/10/15
diclofenac sodium 3 % topical gel 1 applic topical BID #100 grams 09/11/22
lidocaine 5 % topical patch 1 patch topical DAILY #15 ea 09/11/22
(Lidoderm)
Past History
Past History
ED Past Medical History: Asthma, CAD, GERD, HTN, Hypercholesterolemia, Valvular disease and Other (Osteoarthritis, skin cancer)
ED Past Surgical History: Other (knee replacement )
Family/Social History
Tobacco: Former smoker
Personal:
Living: with family

Documented by User: Michael Moreno MD 09/13/24 14:48
CVA Assessment
NIH Stroke Score
NIH Total Score:: 0
Modified Ayden Score (MRS)
-
Score: 1
--- NOTE | 2024-09-13 14:38 | CM ---
CM reviewed chart and met with pt bedside in ED. Lives alone, single story first floor apartment, [address].
Daughter lives nearby and provides support.
Independent with ADLs, personal care and ambulation at baseline. Has been using cane recently for ambulation, no other DME
Denies financial insecurities.
HX [facility] in past, no hx SNF.
PCP: Timbo Benjamin
Pharmacy: [facility] [id number] [place]
Discharge plan: Anticipate home pending ongoing medical evaluation
[2024-09-13 15:31] LABS: Free T4 1.08 ng/dl (0.78-2.19)
[2024-09-13 15:45] LABS: TSH 0.91 uIU/ml (0.47-4.68)
[2024-09-13 16:08] LABS: Glucose - Point of Care 256 mg/dl (70-99)
[2024-09-13 16:21] LABS: Folate 12.7 ng/ml (2.76-20); Vitamin B12 317 pg/ml (239-931)
[2024-09-13] MEDS: HEPARIN 5000 UNITS SC ×2 (16:59→23:04)
[2024-09-13] MEDS: NOVOLOG FLEXPEN-LOW RESISTANCE 3 UNITS SC (16:59)
[2024-09-13] MEDS: PRANDIN 0.5 MG PO (17:00)
[2024-09-13] MEDS: SINGULAIR 10 MG PO (17:00)
[2024-09-13] MEDS: NEURONTIN 300 MG PO ×2 (17:00→21:01)
[2024-09-13] MEDS: LIPITOR 20 MG PO (17:00)
[2024-09-13 17:50] LABS: TSH Reflex To Free T4 0.92 uIU/ml (0.47-4.68)
[2024-09-13] MEDS: TIMOPTIC 0.5% OPHTHALMIC SOLUTION 1 DROP LEFT EYE ×2 (18:21→22:35)
[2024-09-13] MEDS: TRUSOPT 2% OPHTHALMIC SOLUTION 1 DROP LEFT EYE ×2 (18:21→21:13)
[2024-09-13] MEDS: ERYTHROMYCIN 0.5% OPHTHALMIC OINTMENT 1 APPLIC LEFT EYE (21:02)
[2024-09-13] MEDS: NON-FORMULARY ITEM 1 DROP RIGHT EYE (21:12)
[2024-09-13 21:20] LABS: Glucose - Point of Care 153 mg/dl (70-99)
[2024-09-13] MEDS: LANTUS 0.1 UNITS SC (22:35)
[2024-09-14 03:00] VITALS: BP 154/72
[2024-09-14 07:26] LABS: Glucose - Point of Care 137 mg/dl (70-99)
[2024-09-14] MEDS: NOVOLOG FLEXPEN-LOW RESISTANCE SC ×2 (07:44→17:09)
[2024-09-14] MEDS: ERYTHROMYCIN 0.5% OPHTHALMIC OINTMENT 1 APPLIC LEFT EYE ×3 (07:44→17:12)
[2024-09-14] MEDS: HEPARIN 5000 UNITS SC ×2 (07:44→15:52)
[2024-09-14] MEDS: ASPIR LOW (ENTERIC COATED) 81 MG PO (07:44)
[2024-09-14] MEDS: NON-FORMULARY ITEM 400 MG PO (07:45)
[2024-09-14] MEDS: PRANDIN 0.5 MG PO ×3 (07:45→17:11)
[2024-09-14] MEDS: NEURONTIN 300 MG PO ×2 (07:45→15:52)
[2024-09-14] MEDS: NON-FORMULARY ITEM 1 DROP RIGHT EYE ×2 (07:45→15:52)
[2024-09-14] MEDS: TIMOPTIC 0.5% OPHTHALMIC SOLUTION 1 DROP LEFT EYE ×3 (07:46→17:11)
[2024-09-14] MEDS: TRUSOPT 2% OPHTHALMIC SOLUTION 1 DROP LEFT EYE ×3 (07:46→17:12)
[2024-09-14] MEDS: TOPROL XL 25 MG PO (07:46)
[2024-09-14 08:15] LABS: HDL Cholesterol 52 mg/dl; LDL Cholesterol, Calculated 63 mg/dl; Total Cholesterol 145 mg/dl (50-199); Triglyceride 152 mg/dl (10-149); Very Low Density Lipoprotein 30 mg/dl (0-30)
[2024-09-14 08:35] VITALS: BP 170/70
[2024-09-14 08:59] VITALS: BP 173/86; PULSE 65; O2SAT 99
[2024-09-14 09:00] VITALS: BP 173/86; O2SAT 98
--- NOTE | 2024-09-14 09:02 | W.PN.NEURO.1 ---
Addendum entered and electronically signed by Michael Moreno MD 09/14/24 10:25:
Studies reviewed.
I have personally examined the patient. I reviewed and agree with the JOINTER MACHINE's Note.
My addenda:
Awake, alert, interactive. No acute distress. Left eye bruising
Speech with stuttering. No tremor.
Extra-ocular movements grossly intact.
Facial movements full and symmetric. Hearing intact to normal conversational volume.
Normal UE movements bilaterally
Neck: full ROM.
Chest: no dyspnea
Heart: no JVD
Ext: (-) Clubbing, (-) Cyanosis, (-) Edema
IMPRESSIONS/RECOMMENDATIONS:
Abrupt onset of increased involuntary movements which were present for chronic timeframe. Most likely patient is experiencing some mild myotonic movements due to gabapentin
Would attempt to replace gabapentin with alternative medication including duloxetine as outpatient
Rehabilitation evaluations
We will follow MRI of brain results
D/W patient
Will continue to follow pending results. Patient should follow with her usual outpatient neurologist.
Original Note:
Today's Communication / Plan
-
Plan:
-brain MRI pending
-continue aspirin and statin therapy with goal LDL <70, current LDL 63
-Current hgb A1C 7.7, goal <7.0
-neurochecks and NIHSS per unit guidelines
-DVT prophylaxis
-B12 level 317, start Vitamin B12 supplementation daily
-consider replacing gabapentin with alternative medication including duloxetine as outpatient
-follow up with usual outpatient neurologist
-All questions encouraged and answered, plan of care discussed with Dr. Moreno and patient
Neuro Assessment/Plan
Assessment
The patient is a right-handed 89-year-old female with a past medical history of asthma, CAD, AMY, GERD, HTN, HLD, s/p CABG 2016, osteoarthritis, skin cancer who presents with complaints of imbalance and involuntary movements.
Head CT (09/13/2024): No acute intracranial hemorrhage. 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 No mass effect. Moderate central greater than cortical global atrophy.
Lumbar spine XR (09/11/2024):
No acute osseous abnormalities.
Lumbar degenerative disc disease with moderate disc space narrowing from L1-2 through L5-S1
Atherosclerosis
TTE (07/23/2024):
Normal biventricular size and systolic function without regional wall motion abnormality.
Asymmetric septal hypertrophy without evidence of LVOT gradient.
Stage II diastolic dysfunction suggestive of abnormal relaxation and increased filling pressures.
Bioprosthetic aortic valve replacement. Peak/mean gradients across the aortic valve are 40 mmHg/26 mmHg.
Mild pulmonary hypertension.
Compared to the prior study on 04/26/21, the mean gradient across the AVR was 21mmHg on the prior study.
Labs: Cholesterol 145, LDL 63
Hgb A1C 7.7
Brain MRI ordered
Plan
Impressions:
I. Benign essential tremor with worsening symptoms in the setting of stress and being post operative vs medication induced tremor as a result of high dose of gabapentin vs TIA/CVA which is less likely
II. Gait dysfunction in the setting of recent b/l cataract surgery vs family history in father of acoustic neuroma vs exacerbation of her idiopathic peripheral polyneuropathy vs exacerbation of her lumbar radiculopathy
Plan:
-brain MRI pending
-continue aspirin and statin therapy with goal LDL <70, current LDL 63
-Current hgb A1C 7.7, goal <7.0
-neurochecks and NIHSS per unit guidelines
-DVT prophylaxis
-B12 level 317, start Vitamin B12 supplementation daily
-consider replacing gabapentin with alternative medication including duloxetine as outpatient
-follow up with usual outpatient neurologist
-All questions encouraged and answered, plan of care discussed with Dr. Moreno and patient
Subjective/Objective
Subjective Data
Date of Service: September 14, 2024
She states that she feels great, no more twitching or tremors, slept well. Ambulated to bathroom with physical therapy. Says her speech is almost back to normal but still having perioral tremors.
Objective Data
Vital Signs
Temp Pulse Resp BP Pulse Ox
97.7 F 58 16 170/70 98
09/14/24 08:35 09/14/24 08:35 09/14/24 08:35 09/14/24 08:35 09/14/24 08:35
Lab Results
09/13/24 09:39
LDL Cholesterol, Calc 63 mg/dl 09/14/24 06:46
Vitamin B12 317 pg/ml (876-162) 09/13/24 14:41
Patient Allergies
house dust Allergy (Verified 09/13/24 16:04)
Swelling
hydromorphone HCl (From Dilaudid) Allergy (Verified 09/13/24 08:29)
Dizziness, vomiting
mold Allergy (Verified 09/13/24 16:04)
Swelling
pollen extracts Allergy (Verified 09/13/24 16:04)
Swelling
mold,dust,pollen, petroleum product Allergy (Uncoded 09/13/24 08:29)
Swelling
Review of Systems
-
History Source: Patient and Family
Constitutional: No Symptoms
EENT: Blurry Vision
Respiratory: No Symptoms
Cardiac: No Symptoms
Abdomen/GI: No Symptoms
Genitourinary: No Symptoms
Musculoskeletal: No Symptoms
Skin: No Symptoms
Neuro: Tremors and Other (gait dysfunction)
Physical Exam
-
General: Comfortable and Appears Stated Age
HEENT: Other (ecchymosis to left eye)
Neck: Full Range of Motion
Respiratory: No Dyspnea
Cardiac: No JVD
GI: Non-distended
Skin: Unremarkable
Extremities: No Clubbing, No Cyanosis and No Edema
Psych: Unremarkable
Extended Neurological Exam
Mood & Affect: Mood Unremarkable
Attention Span & Concentration: Awake, Alert and Interactive
Memory: Unremarkable
Tremor: Hand Tremor Absent and Other (intermittent perioral tremor)
Speech: Pressured
Cranial Nerve II: Left Eye: Visual Priest Reduced
Cranial Nerve II: Right Eye: Visual Priest Grossly Intact
Cranial Nerve VII: Facial Symmetry: Normal Facial Symmetry
Cranial Nerve VIII: Hearing: Unremarkable Hearing to Normal Conversational Volume
Muscle Strength, Overall: Full Throughout
Muscle Bulk & Tone: Bulk Unremarkable and Tone Unremarkable
Pronator Drift: No Drift in Upper Extremities and No Drift in Lower Extremities
Deep Tendon Reflexes: Unremarkable Throughout
Coordination: Unnzmo-ajmv-jajrrw Testing Unremarkable and Hmxl-Lnsj-Vbgn movements intact bilaterally
--- NOTE | 2024-09-14 09:20 | PTOTSP ---
Speech Language Pathology
Pt seen for speech evaluation. Completed part of [place] Dysarthria Assessment Tool (N-BEN) before pt becoming tearful, stating she was overwhelmed. Mild dysfluencies noted with some decreased phonation respiration coordination. Dysfluencies
more prominent at initiation of utterance.
Discussed availability of outpatient speech therapy. GLUE MACHINE OPERATOR to follow in acute setting only if MRI demonstrates acute issue.
[2024-09-14] MEDS: VITAMIN B-12 1000 MCG PO (09:40)
--- NOTE | 2024-09-14 10:25 | W.PN.HOSP.TC ---
Addendum entered and electronically signed by Ascencion Britton MD 09/14/24 17:22:
MRI brain: No acute intracranial abnormality noted. Moderate atrophy with sequelae of mild chronic small vessel ischemic disease. 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 Consider
further evaluation with dedicated CTA. There is a 2 mm nonenhancing focus within the posterior right aspect of the sella turcica which may represent a microadenoma.
Medically cleared for discharge.
Total time spent on d/c = 38 min. This included today's physical exam, progress note, review of laboratory and diagnostic data, preparation of discharge documents and prescriptions, and discussions about the pt's hospital course and discharge plan
with the patient and other medical scribe involved in the patient's care.
Original Note:
Today's Communication/Plan
-
Likely discharge after MRI brain completed. Discussed with RN.
Assessment / Plan
Assessment / Plan
Gen: NAD, AAOx3.
Eyes: EOMI, PERRLA, no scleral icterus. Left infraorbital ecchymoses
Neck: supple.
CV: RRR, +S1/S2, no m/r/g.
Resp: CTAB, no rales, wheezes, or rhonchi.
Abd: +BS, soft, NT, ND
Skin: No rashes.
Neuro: CN 2-12 intact, non-focal. Very mild facial tremor.
Psych: Normal mood and affect.
CT Head 09/13/24: No acute intracranial hemorrhage. 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 No mass effect. Moderate central greater than cortical global atrophy
L-spine Xray 09/11/24: No acute osseous abnormalities. Lumbar degenerative disc disease with moderate disc space narrowing from L1-2 through L5-S1. Atherosclerosis
07/23/24 TTE
Normal biventricular size and systolic function without regional wall motion abnormality.
Asymmetric septal hypertrophy without evidence of LVOT gradient.
Stage II diastolic dysfunction suggestive of abnormal relaxation and increased filling pressures.
Bioprosthetic aortic valve replacement. Peak/mean gradients across the aortic valve are 40 mmHg/26 mmHg.
Mild pulmonary hypertension.
Compared to the prior study on 04/26/21, the mean gradient across the AVR was 21mmHg on the prior study.
No acute intracranial hemorrhage.
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
No mass effect.
Moderate central greater than cortical global atrophy
Increase in frequency of chronic tremors:
-appreciate neurology
-likely mild myotonic movements due to Neurontin
-PT/OT
-check MRI brain
Other problems:
CAD with h/o stents and CABG 2016: cont ASA/statin/BB
Chronic HFpEF: cont BB
DM2: a1c 7.7%, cont Lantus/Prandin/SSI/accuchecks
Mild pulm HTN
HLD: cont statin
FULL/Heparin
Anticipated Discharge: Today
Subjective/Interval History
-
Date of Service: September 14, 2024
No new complaints.
Objective Data
-
Vital Signs:
Vital Signs
Temp Pulse Resp BP Pulse Ox
97.7 F 58 16 170/70 98
09/14/24 08:35 09/14/24 08:35 09/14/24 08:35 09/14/24 08:35 09/14/24 08:35
I&O
09/13/24 09/14/24 09/15/24
06:59 06:59 06:59
Intake Total 600 / 600
Balance 600 / 600
[2024-09-14 11:11] VITALS: BP 120/58
[2024-09-14 11:56] LABS: Glucose - Point of Care 183 mg/dl (70-99)
[2024-09-14] MEDS: NOVOLOG FLEXPEN-LOW RESISTANCE 1 UNITS SC (12:08)
--- NOTE | 2024-09-14 13:08 | PTCARENOTE ---
Pt 's granddaughter concerned that pt seemed to be having more difficulty finding words and speaking them. Pt was able to read words and tell story from [facility] papers without difficulty. This nurse did not note any difficulty with finding words and
speaking them. Granddaughter was at bedside when this took place. Pt does have some tremors in face/jaw when speaking, but no difficulty noted. Care ongoing.
[2024-09-14] MEDS: ATIVAN 0.5 MG IV (14:22)
[2024-09-14] MEDS: NSS (PRESERVATIVE FREE) 0.25 ML IV (14:23)
[2024-09-14 16:59] LABS: Glucose - Point of Care 147 mg/dl (70-99)
[2024-09-14] MEDS: SINGULAIR 10 MG PO (17:11)
[2024-09-14] MEDS: LIPITOR 20 MG PO (17:11)
--- NOTE | 2024-09-14 17:22 | W.DCSUMMARY ---
Discharge Summary
Discharge Data
Date of Admission: 09/13/24
Date of Discharge: 09/14/24
-
Pending Results: No
Hospital Course
Primary diagnoses:
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
Secondary diagnoses:
Coronary artery disease with h/o stents and CABG 2016
Chronic heart failure with preserved ejection fraction
Type 2 diabetes mellitus
Mild pulmonary hypertension
Hyperlipidemia
h/o bioprosthetic aortic valve replacement
Consultants:
Neurology
Imaging:
MRI brain 09/14/24: No acute intracranial abnormality noted. Moderate atrophy with sequelae of mild chronic small vessel ischemic disease. 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
Consider further evaluation with dedicated CTA. There is a 2 mm nonenhancing focus within the posterior right aspect of the sella turcica which may represent a microadenoma.
CT Head 09/13/24: No acute intracranial hemorrhage. 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 No mass effect. Moderate central greater than cortical global atrophy.
Hospital course: 89-year-old female who presented with a chief complaint of abnormal speech as outlined in the H&P done on admission. Specifically the patient's was having abnormal speech due to facial tremors. Patient was seen in consultation by
neurology. It was thought that her facial tremors were likely mild myotonic movements due to side effects of Neurontin. Her Neurontin dose was decreased. MRI brain above and without findings warrant further hospitalization. She will need
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 The patient was discharged in medically stable condition.
Discharge Plan
-
Patient Disposition: Home (Routine Discharge)
Discharge Diagnosis/Procedures: Increase in frequency of chronic tremors, likely mild myotonic movements due to Neurontin
Condition: Good
Diet: Diabetic, Carb Controlled
Activity: As tolerated
Driving Restrictions: Not until seen by your Dr
Referrals:
Timbo Benjamin MD [Family Provider, Internal Medicine] - in less than 1 week
Michael Moreno MD [Active, Neurology] - in one to two weeks
Prescriptions:
New
atorvastatin 20 mg Tablet
20 mg PO QPM Qty: 30 0RF
cyanocobalamin (vitamin B-12) [Vitamin B-12] 1,000 mcg Tablet
1,000 mcg PO DAILY Qty: 0 0RF
gabapentin 300 mg Capsule
300 mg PO TID Qty: 90 0RF
Continued
montelukast [Singulair] 10 MG tablet
10 mg PO HS
aspirin 81 MG tablet,delayed release (DR/EC)
81 mg PO DAILY
metoprolol succinate 25 MG tablet extended release 24 hr
25 mg PO DAILY
docusate sodium 100 MG capsule
100 mg PO HS
lutein 20 MG capsule
20 mg PO BID
cetirizine 10 mg Tablet
10 mg PO HS
moxifloxacin 400 mg Tablet
400 mg PO DAILY
Patient Comments:
09/13/2024, filled on 09/09/2024 and instructed to take 1 tablet daily for 10 days; started taking on (09/09/2024) per pt.
acetaminophen [Tylenol Extra Strength] 500 mg Tablet
500 mg PO DAILYPRN PRN (Reason: mild pain)
erythromycin 5 mg/gram (0.5 %) Ointment
1 applic LEFT EYE QID
dorzolamide-timolol 22.3-6.8 mg/mL Drops
1 drp LEFT EYE QID
repaglinide 1 mg Tablet
1 mg PO BID
Ozempic 1 mg/dose (4 mg/3 mL) Pen Injector
1 mg SC SA@0800
simvastatin 40 MG tablet
40 mg PO HS
prednisolone sod ph-moxiflox 1-0.5 % Drops
1 drp OPHTHALMIC (EYE) TID
Rx Instructions:
RT eye TID
prednisolone sod ph-moxiflox 1-0.5 % Drops
1 drp OPHTHALMIC (EYE) QID
Rx Instructions:
LT eye QID
Discontinued
gabapentin [Neurontin] 800 MG tablet
1,600 mg PO HS
gabapentin 800 mg Tablet
800 mg PO DAILY
gabapentin 800 mg Tablet
800 mg PO DAILY PRN (Reason: peripheral neuropathy)
Discharge Orders:
Discharge Patient (As Directed); Ordered 09/14/24
Ordered By: Ascencion Britton
Discharge Date and Time
Print Language: LAO
== END 2024-09-14 18:28 | disposition home or self-care (01) | DRG 92 ==
LOC: 4 WEST ACU 13:00
PROVIDERS: ADMITTING PHYSICIAN Internal Medicine; ATTENDING PHYSICIAN Internal Medicine; CONSULT PHYSICIAN Psychiatry & Neurology Neurology; EMERGENCY PHYSICIAN Student in an Organized Health Care Education/Training Program; FAMILY PHYSICIAN Internal Medicine Geriatric Medicine
DX: G00-G99 Diseases of the nervous system (principal); I50.32 Chronic diastolic (congestive) heart failure; G25.1 Drug-induced tremor; T42.6X5A Adverse effect of other antiepileptic and sedative-hypnotic drugs, initial encounter; Z95.3 Presence of xenogenic heart valve; I27.20 Pulmonary hypertension, unspecified; I25.10 Atherosclerotic heart disease of native coronary artery without angina pectoris; Z87.891 Personal history of nicotine dependence; E11.40 Type 2 diabetes mellitus with diabetic neuropathy, unspecified; E78.5 Hyperlipidemia, unspecified; Z79.899 Other long term (current) drug therapy; I11.0 Hypertensive heart disease with heart failure; M51.369 Other intervertebral disc degeneration, lumbar region without mention of lumbar back pain or lower extremity pain; M51.379 Other intervertebral disc degeneration, lumbosacral region without mention of lumbar back pain or lower extremity pain; Z79.4 Long term (current) use of insulin; Z79.85 Long-term (current) use of injectable non-insulin antidiabetic drugs; Z85.828 Personal history of other malignant neoplasm of skin; Z95.1 Presence of aortocoronary bypass graft; Z95.5 Presence of coronary angioplasty implant and graft
CPT/HCPCS: 36415; 70450; 70553; 80048; 80061; 82607; 82728; 82746; 82962; 83036; 84439; 84443; 85025; 92523; 97162; 97166; 99285; A9575

== ENCOUNTER → 2024-10-07 08:38 | Outpatient (REF) | payer MEDICARE, OTHER, SELFPAY ==
[2024-10-07 11:33] LABS: FSH 41.8 mIU/ml
== END ==
LOC: RAD 08:38
PROVIDERS: ATTENDING PHYSICIAN Internal Medicine Geriatric Medicine
DX: Z09 Encounter for follow-up examination after completed treatment for conditions other than malignant neoplasm (principal); E11.9 Type 2 diabetes mellitus without complications; I10 Essential (primary) hypertension; E78.5 Hyperlipidemia, unspecified; I25.10 Atherosclerotic heart disease of native coronary artery without angina pectoris; I35.0 Nonrheumatic aortic (valve) stenosis; Z95.2 Presence of prosthetic heart valve; G47.33 Obstructive sleep apnea (adult) (pediatric); G60.9 Hereditary and idiopathic neuropathy, unspecified; J30.2 Other seasonal allergic rhinitis; E55.9 Vitamin D deficiency, unspecified; Z13.31 Encounter for screening for depression; I73.9 Peripheral vascular disease, unspecified; D35.2 Benign neoplasm of pituitary gland
CPT/HCPCS: 36415; 70496; 70498; 83001; 83002; 84146; Q9967

== ENCOUNTER → 2024-12-16 14:10 | Outpatient (REF) | payer MEDICARE, OTHER, SELFPAY ==
[2024-12-16 18:07] LABS: Cortisol, Random 5.2 ug/dl
[2024-12-17 06:41] LABS: Glycohemoglobin (HgbA1c) 7.2 % (4.0-5.6)
== END ==
LOC: REG 14:10
PROVIDERS: ATTENDING PHYSICIAN Internal Medicine Geriatric Medicine
DX: E11.9 Type 2 diabetes mellitus without complications (principal); E34.9 Endocrine disorder, unspecified
CPT/HCPCS: 36415; 82533; 83036